=== PATIENT | male | born 1980 | race Caucasian/White ===

== ENCOUNTER 2020-06-22 09:38 | Outpatient (REF) | payer OTHER, SELFPAY ==
[2020-06-23 16:14] LABS: COVID-19 RT-PCR UVMMC Result Negative (Negative)
== END 2020-06-22 09:39 | disposition home or self-care (01) ==
LOC: NCHCN 09:38
PROVIDERS: PCP Family Medicine; Visit Provider Family Medicine
DX: Z20.822 Contact with and (suspected) exposure to COVID-19 (principal); J06.9 Acute upper respiratory infection, unspecified
CPT/HCPCS: U0003

== ENCOUNTER → 2023-11-04 09:38 | Outpatient (CLI) | payer OTHER, SELFPAY ==
--- NOTE | 2023-11-04 15:43 | DI.RAD_ITS ---
Exam(s) XR RIBS LT W PA LAT CHEST CLINICAL HISTORY PLEURODYNIA-R07.81. COMPARISON: No exams were available for comparison TECHNIQUE:: PA and lateral views of the chest and four views of the left ribs were performed. FINDINGS: LUNGS: Clear. No pleural abnormality seen. HEART: Normal. MEDIASTINUM: Normal. BONES: No displaced rib fracture is seen. No compression fractures are seen in the thoracic spine. No bony destructive lesion is seen. OTHER FINDINGS: None. IMPRESSION: 1. Unremarkable radiographic appearance of the left ribs. 2. No acute pulmonary findings.
== END ==
PROVIDERS: Visit Provider Nurse Practitioner Family
DX: R07.81 Pleurodynia (principal)
CPT/HCPCS: 71046; 71100

== ENCOUNTER 2024-04-02 08:18 | Emergency (ER) | payer OTHER, SELFPAY ==
[2024-04-02 08:27] VITALS: BP 116/84; PULSE 81; RESP 26; TEMP 37; O2SAT 100
--- NOTE | 2024-04-02 08:51 | ED.GENADUL_ITS ---
Discharge Plan Disposition Patient Disposition: Home Discharge Details Clinical Impression: Bilateral leg pain Primary Care Provider: Kathi,Local ED Provider: Emma Daigle Home Meds and New Rx's Prescriptions: New gabapentin 300 mg capsule 300 mg PO BID Qty: 20 0RF Discharge Instructions Additional Instructions: Please call your primary care provider this afternoon to schedule follow-up appointment for reassessment/management of your leg pain. A referral to orthopedics may be indicated Your workup today was very reassuring. Your tick and Lyme panel are pending, results to be available next week. Your leg pain may be caused by muscle aches/myalgias or nerve pain/neuropathy. I advise you to use gabapentin 3 mg twice daily for discomfort, as well as ibuprofen 600 mg 3 times a day. Please keep in mind that ibuprofen use with concurrent alcohol use may increase your risk of GI bleed, I recommend cutting down your alcohol consumption and keeping an eye out for signs of GI bleed such as abdominal pain, nausea/vomiting, black/tarry stools. Return to emergency care if you develop new leg weakness, numbness, numbness in your underwear area, change in bowel or bladder function, color change to your legs, or if you are very worried and need to be rechecked again immediately Stand Alone Forms: Work Release HPI General Date/Time Provider Initiated Documentation: 04/02/24 08:23 . HPI Narrative: Angelina is a 43year old male who presents to the emergency department today for evaluation of sudden onset of bilateral leg pain, L>R. He reports that pain started around 4 AM, woke him up. It has been getting worse since onset. Is described as a cramping pain like charley horses, but without the leg spasms. He denies associated fever/chills, abdominal pain, change in bowel or bladder function, saddle anesthesia/paresthesia, paresthesias to the legs, weakness in the legs other than due to the pain. No known history of trauma. He does work as a driver's education instructor, admits to lifting a lot but no recent back injuries. No previous history of pain similar to this. No significant past medical history other than EtOH use, 5-6 drinks (beer and liquor) daily. No history of spinal instrumentation, LP, IVDU. He did not take any medications prior to arrival. is at bedside. Physical exam reassuring, though patient does appear very uncomfortable. Sensation grossly intact to lower extremities, assessment of strength limited due to severe discomfort. Negative straight leg test bilaterally. Distal pulses intact, feet feel slightly cool, but neurovascularly intact. Brisk cap refill, distal pulses intact. No C-spine/T-spine/L-spine step-off chest tenderness/deformity. No tenderness to palpation of lower back or buttocks. D/dx includes but is not limited to: Rhabdomyolysis, electrolyte imbalance, vasculitis, bilateral radiculopathy, neuropathy, myalgias due to tickborne illness I independently interpreted the following tests: CBC, CMP, CPK, magnesium, and urinalysis all reassuring. Alcohol slightly elevated at 13.4, consistent with reported alcohol use. While in the emergency department, Angelina received Toradol for pain, with good improvement of pain. He was initially 10 out of 10 when he arrived to the emergency department, now rated 0/10 -6/10 (pain comes and goes in waves). He was able to ambulate throughout the department, normal gait, however appeared uncomfortable. Coolness to feet has resolved with blanket and socks on. Angelina reports good pain relief after receiving gabapentin for possible nerve pain. Overall workup today reassuring. No red flags concerning for cauda equina, spinal epidural abscess, or other serious etiologies of bilateral leg pain. Etiology of back pain likely musculoskeletal or nerve pain. Recommend close follow-up with PCP for further evaluation/management. Will provide a limited number of gabapentin for home use. Work note provided. Reviewed discharge instructions with patient, including symptomatic management and red flags indicating need for return to emergency care Related Data Home Medications ?Medication ?Instructions ?Recorded ?Confirmed gabapentin 300 mg capsule 300 mg PO BID #20 caps 04/02/24 Previous Rx's ?Medication ?Instructions ?Recorded gabapentin 300 mg capsule 300 mg PO BID #20 caps 04/02/24 Allergies Allergy/AdvReac Type Severity Reaction Status Date / Time No Known Allergies Allergy Unverified 04/02/24 08:29 General Stated Complaint: Orthopedic TRINA: 3 Exam Const General: cooperative, well developed, well groomed and in distress (Appears very uncomfortable) Nutritional Appearance: average body habitus and well nourished Orientation: alert and oriented x3 Resp Effort & Inspection: normal respiratory effort and able to speak in complete sentences GI Inspection: normal to inspection and non-distended Palpation: soft, not firm, no guarding and nontender Back/Spine/Pelvis Back: no CVA tenderness Thoracic/Lumbar Spine: thoracic and lumbar spine normal to inspection and straight leg raise negative bilaterally Skin General skin exam: no rashes or lesions noted Neuro General: patient alert, patient oriented x3, gait normal, tone normal, moves all extremities and no focal motor deficits Motor: muscle tone normal throughout Sensory Exam: no sensory deficits noted Extrem General: normal to inspection, full ROM, capillary refill normal, no pedal edema, no calf tenderness and normal gait Right upper extremity: normal to inspection Left upper extremity: normal to inspection Right lower extremity: normal to inspection, full ROM, normal capillary refill and no joint enlargement Left lower extremity: normal to inspection, full ROM, normal capillary refill and no joint enlargement Other: Diffuse pain all over bilat legs, not elicited with palpation Course Vital Signs Vital signs: Vital Signs Temperature 37.0 C 04/02/24 08:27 Pulse 81 04/02/24 08:27 Respiratory Rate 26 H 04/02/24 08:27 Blood Pressure 116/84 04/02/24 08:27 Pulse Oximetry 100 04/02/24 08:27 Temperature 37.0 C 04/02/24 08:27 Temperature Source Oral 04/02/24 08:27 Pulse 81 04/02/24 08:27 Respiratory Rate 26 H 04/02/24 08:27 Blood Pressure 116/84 04/02/24 08:27 Blood Pressure Position Sitting 04/02/24 08:27 Pulse Oximetry 100 04/02/24 08:27 Oxygen Delivery Method Room Air 04/02/24 08:27 Oxygen Flow Rate 0 04/02/24 08:27 Pain Level 10 04/02/24 08:27 Medical Decision Making Quality:SDOH Health Related Social Needs: No Data to Display PFSH All Active Problems (Updated 04/02/24 @ 10:47 by Emma Kidd) Bilateral leg pain (Acute) Lumbar strain (Acute) Medical History Traumatic rotator cuff tear Social History Smoking/Tobacco Use Status: Never Smoking risk assessment performed?: Yes Alcohol Intake: current Alcohol Intake frequency: 0-2 drinks per day Alcohol type: beer and hard liquor Drug use: Occasionally Substance use type: marijuana Do you feel safe at home: Yes Do you feel safe in your relationship?: Yes PAWSS Have you Been Recently Intoxicated or Drunk Within the Last 30 days?: Yes Have you Ever Experienced Previous Episodes of Alcohol Withdrawal?: No Have you ever Experienced Withdrawal Seizures?: No Have you ever Experienced Delirium Tremens(DT)s?: No Have you ever undergone Alcohol Rehabilitation Treatment (i.e, inpt ot outpatient treatment programs)?: No Have you ever Experienced Blackouts?: No Have you ever Combined Alcohol with other Downers within the last 90 days?: No Have you ever Combined Alcohol with any other Substance of Abuse during the last 90 days?: No Positive Blood Alcohol level on Presentation? [PCS.BAL]: No Evidence of Increased Autonomic Activity (i.e. HR>120, tremor, sweating, agitation, nausea)?: No Result: 1
[2024-04-02 08:54] LABS: Abs Immature Grans 0.04 10^3/uL (0.0-0.06); Absolute Basophil Count 0.02 10^3/uL (0.0-0.2); Absolute Eosinophil Count 0.06 10^3/uL (0.0-0.7); Absolute Lymphocyte Count 1.88 10^3/uL (1.2-3.4); Absolute Neutrophil Count 2.53 10^3/uL (1.2-6.7); Basophils % 0.4 %; Eosinophils % 1.2 %; HCT 42.3 % (40.0-50.0); HGB 15.4 g/dL (13.5-17.5); Immature Grans % 0.8 %; Lymphocytes % 37.4 %; MCH 32.5 pg (27.0-33.0); MCHC 36.4 % (32.0-36.0); MCV 89 fL (80-95); MPV 8.5 fL (8.0-11.0); Monocytes % 9.9 %; Neutrophils % 50.3 %; Platelet Count 264 10^3/uL (130-400); RBC 4.74 10^6/uL (4.36-5.78); RDW 11.2 % (11.8-14.1); RDW-SD 36.1 fL; WBC 5.03 10^3/uL (4.4-10.8)
[2024-04-02] MEDS: Ketorolac 15 MG/ML VIAL IVP (09:03)
[2024-04-02 09:08] LABS: ETHANOL BLOOD 13.4 mg/dL (<10)
[2024-04-02 09:13] LABS: ALT 62 U/L (16-63); AST 36 U/L (15-37); Albumin 3.7 g/dL (3.4-5.0); Alkaline Phosphatase 57 U/L (46-116); Anion Gap 10.3 mmol/L (3-11); BUN 10 mg/dL (7-18); Bilirubin, Total 0.25 mg/dL (0.2-1.0); CO2 25.7 mmol/L (21.0-32.0); CREATININE 0.8 mg/dL (0.70-1.30); Calcium 8.7 mg/dL (8.5-10.1); Chloride 106 mmol/L (98-107); Creatine Kinase 52 U/L (39-308); Estimated GFR 114.02 (mL/min/1.73m2); Glucose 96 mg/dL (74-106); Potassium 4.3 mmol/L (3.5-5.1); Sodium 142 mmol/L (136-145); Total Protein 7.2 g/dL (6.4-8.2)
[2024-04-02 10:06] VITALS: BP 102/78; PULSE 85; RESP 24; O2SAT 99
[2024-04-02 10:06] LABS: Bilirubin Negative (Negative); Blood Negative (Negative); Clarity Clear (Clear); Glucose Negative (Negative); Ketones Negative (Negative); Leukocyte Esterase Negative (Negative); Nitrite Negative (Negative); Urobilinogen 0.2 mg/dL (Up to 0.2)
[2024-04-02] MEDS: Magnesium Oxide 400 MG TAB PO (10:09)
[2024-04-02] MEDS: Gabapentin 300 MG CAP PO (10:10)
[2024-04-02 10:24] LABS: *AMPHETAMINES SCREEN URINE Negative (Negative); *BARBITURATES SCREEN URINE Negative (Negative); *BENZODIAZEPINES SCREEN URINE Negative (Negative); Cannabinoids THC Negative (Negative); Cocaine Screen,Urine Negative (Negative); METHADONE URINE SCREEN Negative (Negative); OPIATES URINE SCREEN Negative (Negative)
[2024-04-02 10:25] LABS: Tricyclic Antidepressants Negative (Negative)
[2024-04-02 11:05] VITALS: BP 122/85; PULSE 77; RESP 18; O2SAT 100
[2024-04-03 09:18] LABS: Lyme Ab w Rflx to Lyme Confirm Negative (Negative)
[2024-04-05 17:44] LABS: Anaplasma phagocytophilum Negative (Negative); B. miyamotoi PCR Negative (Negative); Babesia divergens/MO-1 Negative (Negative); Babesia duncani Negative (Negative); Babesia microti Negative (Negative); Ehrlichia chaffeensis Negative (Negative); Ehrlichia ewingii/canis Negative (Negative); Ehrlichia muris eauclairensis Negative (Negative)
== END 2024-04-02 11:07 | disposition home or self-care (01) ==
PROVIDERS: Emergency Provider Nurse Practitioner Family
DX: M79.662 Pain in left lower leg (principal); M79.661 Pain in right lower leg
CPT/HCPCS: 36415; 80053; 80307; 82550; 87798; 96374; 99284; 80320; 81003; 83735; 85025; 86618; J1885